=== PATIENT | male | born 1995 | race African-American/Black ===

== ENCOUNTER 2017-11-07 08:37 | Emergency (ER) | payer SELFPAY ==
[2017-11-07 08:40] VITALS: TEMP 98
[2017-11-07 10:00] VITALS: BP 127/64; PULSE 60
== END 2017-11-07 10:02 | disposition home or self-care (01) ==
LOC: COL.ER 08:37
DX: S03.03XA Dislocation of jaw, bilateral, initial encounter (principal); X50.1XXA Overexertion from prolonged static or awkward postures, initial encounter
CPT/HCPCS: J2704; J3010; J7030

== ENCOUNTER 2019-02-03 04:33 | Emergency (ER) | payer SELFPAY ==
[~2019-02-03] VITALS: Ht 188 cm; Wt 90.9 kg
[2019-02-03 04:40] VITALS: TEMP 98
[2019-02-03 06:45] VITALS: BP 138/78; PULSE 88
== END 2019-02-03 06:47 | disposition home or self-care (01) ==
LOC: COL.ER 04:33
DX: S03.00XA Dislocation of jaw, unspecified side, initial encounter (principal); F17.210 Nicotine dependence, cigarettes, uncomplicated; X58.XXXA Exposure to other specified factors, initial encounter
CPT/HCPCS: J2405; J2704; J7030